=== PATIENT | female | born 1955 | race Caucasian/White ===

== ENCOUNTER → 2017-05-20 | Outpatient (CLI) | payer OTHER | LOC: FIMAGING 14:18 | PROVIDERS: ATTEND Family Medicine | DX: Z12.31 Encounter for screening mammogram for malignant neoplasm of breast (principal) | CPT/HCPCS: G0202 ==

== ENCOUNTER 2018-08-09 18:45 | Emergency (ER) | payer OTHER ==
[2018-08-09] MEDS ORDERED: CEPHALEXIN 500 MG CAP PO ONE (20:09)
--- NOTE | 2018-08-09 20:11 | EDPHY ---
H & P Time Seen by Provider: 08/09/18 20:03 HPI/ROS: This patient presents with dysuria and urinary frequency for the past 3-4 days. She reports mild suprapubic discomfort associated with this and states the symptoms are similar to prior episodes of urinary tract infection. She also has mild right flank pain but she thinks this is musculoskeletal low back pain attributable to her scoliosis. She notes no exacerbating factors except for mild relief of her dysuria from [id number] azo. Constitutional: No fevers or chills Cardiovascular: No lightheadedness GI: No nausea or vomiting : No vaginal discharge or hematuria. 5 point review of symptoms is performed and otherwise negative with exception of pertinent positives and negatives listed in HPI and ROS Smoking Status: Former smoker Physical Exam: Physical Exam Vital signs are normal. General: No acute distress Lungs: No respiratory distress. Cardiac: Brisk capillary refill is intact throughout. Abdomen: Mild suprapubic tenderness with no guarding or rebound. Upper belly tenderness per Back: Mild right lumbar tenderness versus CVA tenderness with obvious scoliosis. No left CVA tenderness or muscular tenderness. No midline tenderness. Skin: No rash or pallor. Neuro: Alert and oriented x3 DIFFERENTIAL DIAGNOSIS: After history and physical exam differential diagnosis was considered for cystitis, urethritis, pyelonephritis, musculoskeletal back pain Constitutional: Initial Vital Signs Temperature (C) 36.8 C 08/09/18 19:35 Heart Rate 75 08/09/18 19:35 Blood Pressure 166/81 H 08/09/18 19:35 O2 Sat (%) 94 08/09/18 19:35 O2 Delivery Mode Room Air Allergies/Adverse Reactions: Sulfa (Sulfonamide Antibiotics) Allergy (Intermediate, Verified 08/09/18 19:34) Hives Home Medications: Medication Instructions Recorded Cephalexin [Keflex (*)] 500 mg PO TID #21 cap 08/09/18 Wellbutrin Sr 08/09/18 MDM/Departure - MDM Diagnostics: POC urine dip reveals leukocytes. Otherwise negative. Medications Given: Discontinued Medications Cephalexin HCl (Keflex) 500 mg PO EDNOW ONE PRN Reason: Protocol Stop: 08/09/18 20:10 Last Admin: 08/09/18 20:16 Dose: 500 mg ED Course/Re-evaluation: Discussion: Patient presents with findings and urine dip consistent with UTI. I suspect she has cystitis though she could have early pyelonephritis given flank pain and tenderness that I think is more likely musculoskeletal I counseled regarding this. Will cover her with Keflex antibiotic-1st dose given here. She understands need to return emergency department should she develop any significant worsening of her symptoms despite the treatment plan. - Depart Disposition: Home, Routine, Self-Care Clinical Impression: Urinary tract infection Qualifiers: Urinary tract infection type: site unspecified Hematuria presence: without hematuria Qualified Code(s): N39.0 - Urinary tract infection, site not specified Condition: Good Instructions: Urinary Tract Infection in Women (ED) Additional Instructions: Diagnosis: Urinary tract infection Plan: Keflex antibiotic Drink plenty fluids Continue azo as needed for symptoms Ibuprofen in addition if needed for back/flank pain Return for any significant worsening despite the treatment plan. Prescriptions: Cephalexin [Keflex (*)] 500 mg PO TID #21 cap Referrals: Shivam Thakur DO [Primary Care Provider] - As per Instructions
[2018-08-09 21:05] VITALS: BP 145/84
== END 2018-08-09 20:19 | disposition home or self-care (01) ==
LOC: CED 18:45
DX: N39.0 Urinary tract infection, site not specified (principal); Z88.2 Allergy status to sulfonamides
CPT/HCPCS: 99283-ER